=== PATIENT | male | born 1985 | race Caucasian/White ===

== ENCOUNTER 2020-08-13 20:56 | Emergency (ER) | payer SELFPAY ==
[2020-08-13 21:09] VITALS: BP 143/89; PULSE 98; RESP 18; TEMP 37.1; O2SAT 97; BMI 33.5
--- NOTE | 2020-08-13 21:30 | ED_ITS ---
HPI - Overdose General Chief Complaint: Overdose Stated Complaint: HEROIN OD,8MG NARCAN GIVEN W/GOOD RESULT Time Seen by Provider: 08/13/20 21:11 Source: patient and EMS Mode of arrival: EMS Limitations: no limitations History of Present Illness HPI Narrative: relapsed accidental heroin overdose just [employer]IST[employer] given 8mg narcan, no prior narcan in past MD complaint: accidental overdose Onset (ago): minute(s) Context: Accidental Overdose: wanted to get high Treatments Prior to Arrival: narcan (8mg) Related Data Allergies Allergy/AdvReac Type Severity Reaction Status Date / Time codeine [CODEINE] Allergy Unknown UNKNOWN Verified 08/13/20 21:12 codiene Allergy Unknown stomach Uncoded 08/13/20 21:12 pain Review of Systems Review of Systems: Constitutional : No Fever, No Chills ENT/Mouth : No sore throat, No Rhinorrhea Eyes: No Eye Pain, No Swelling, No Redness Cardiovascular : No Chest Pain, No SOB Respiratory : No Cough, No Sputum Gastrointestinal : No Nausea, No Vomiting, No Diarrhea, No abdominal Pain Genitourinary : No Dysuria, No Hematuria Musculoskeletal : No joint pain, No Myalgias, No Joint Swelling Skin : No Skin Lesions, No rash Neuro : No Weakness, No Numbness Psych : No Anxiety, No Depression, No SI/HI/AH/VH Heme/Lymph: No Bruising, No Bleeding Endocrine : No Polyuria, No Polydipsia All other systems reviewed and are negative [facility] Past Medical History Medical History No known health problems Social History Social History (Updated 08/13/20 @ 21:30 by Tati Ni DO) Smoking Status: Current every day smoker Substance Use Type: Heroin Advance Directives: No Advance Directives Information Provided: Yes Physical Exam Vital Signs: Vital Signs: Vital Signs Temp Pulse Resp BP Pulse Ox 08/13/20 21:09 98.8 F 98 18 143/89 H 97 Body Mass Index 33.5 Appearance: Alert. Oriented X3. No acute distress. Eyes: Pupils equal, round and reactive to light. ENT: Pharynx normal. Neck: Normal inspection. Neck supple. CVS: Normal heart rate and rhythm. Pulses normal. Respiratory: No respiratory distress. Breath sounds normal. Abdomen: Soft and nontender. Skin: Skin warm and dry. Normal skin color. Normal skin turgor. Extremities: No lower extremity edema. No calf ttp Neuro: Oriented X 3. No motor deficit. No sensory deficit. Course Course Course Narrative: patient awake and alert, GCS 15, steady gait, stable for DC, narcan in hand MDM - Overdose MDM Narrative Medical decision making narrative: 35 yo male relapse unintentinal heroin overdose at this time will observe off narcan to take home, he refuses SWAT/recovery coaches and suboxone clinic. Once observed stable for DC Discharge Plan Discharge Clinical Impression: Drug overdose Qualifiers: Encounter type: initial encounter Injury intent: accidental or unintentional Qualified Code(s): T50.901A - Poisoning by unspecified drugs, medicaments and biological substances, accidental (unintentional), initial encounter Patient Disposition: Home, Self-Care Instructions: Opioid Use Disorder (ED)
[2020-08-13 22:13] VITALS: BP 126/82; PULSE 80; RESP 10; O2SAT 98
== END 2020-08-13 23:18 | disposition home or self-care (01) ==
PROVIDERS: Emergency Provider Emergency Medicine
DX: T40.1X1A Poisoning by heroin, accidental (unintentional), initial encounter (principal); Y92.9 Unspecified place or not applicable; F11.10 Opioid abuse, uncomplicated; Z71.51 Drug abuse counseling and surveillance of drug abuser
CPT/HCPCS: 99283; 99285

== ENCOUNTER 2021-08-30 15:26 | Emergency (ER) | payer OTHER, SELFPAY ==
--- NOTE | ~2021-08-30 | US_ITS ---
EXAMINATION: US VENOUS ULTRASOUND WITH DOPPLER LOWER EXTREMITY, BILATERAL CLINICAL INFORMATION: Bilateral leg swelling and pain COMPARISON: None TECHNIQUE: Ultrasound of the deep veins is performed from the hip to the calf with compression sonography and color and pulse Doppler assessment. Spectral analysis with color-flow imaging is performed. FINDINGS: RIGHT: There is normal venous compression and respiratory variation and augmented flow. The visualized common femoral vein, superficial femoral vein, profunda femoral vein, popliteal vein, and the trifurcation region shows no evidence of deep venous thrombosis. There is no significant popliteal fossa cyst. LEFT: There is normal venous compression and respiratory variation and augmented flow. The visualized common femoral vein, superficial femoral vein, profunda femoral vein, popliteal vein, and the trifurcation region shows no evidence of deep venous thrombosis. There is no significant popliteal fossa cyst. If the patient's symptoms persist, followup ultrasound in 5 days 7 days might be of value to exclude proximal propagation from a non-visualized calf vein. US/US venous duplex LE BI IMPRESSION: No DVT demonstrated in either the left or right lower extremity.
[2021-08-30 16:19] VITALS: BP 124/88; PULSE 59; RESP 18; TEMP 36.7; O2SAT 98; BMI 34.8
--- NOTE | 2021-08-30 20:45 | ED.EXTPRO ---
HPI - Extremity Problem General Chief complaint: General Medical Stated complaint: bilat leg swelling Time Seen by Provider: 08/30/21 16:34 Source: patient Mode of arrival: ambulatory Limitations: no limitations History of Present Illness MD Complaint: extremity pain, extremity swelling and other (redness) Onset (ago): day(s) (5) Pain Consistency: constant Location: left, right and lower extremity Quality: aching Radiation: none Relieving factors: nothing Exacerbating factors: nothing Associated symptoms: denies other symptoms Context: other (4 bouts in past responds to abx dx with cellulitis) Related Data Previous Rx's Medication Instructions Recorded cephalexin 500 mg capsule 500 mg PO TID 7 Days #21 cap 08/30/21 doxycycline hyclate 100 mg capsule 100 mg PO BID 7 Days #14 cap 08/30/21 furosemide 20 mg tablet (Lasix) 20 mg PO DAILY 3 Days #3 tab 08/30/21 Allergies Allergy/AdvReac Type Severity Reaction Status Date / Time codeine [CODEINE] AdvReac Intermediate Stomach Verified 08/30/21 16:19 Upset codiene AdvReac Intermediate stomach Uncoded 08/30/21 16:19 pain Review of Systems Review of Systems: Constitutional : No Fever, No Chills ENT/Mouth : No sore throat, No Rhinorrhea Eyes: No Eye Pain, No Swelling, No Redness Cardiovascular : No Chest Pain, No SOB Respiratory : No Cough, No Sputum Gastrointestinal : No Nausea, No Vomiting, No Diarrhea, No abdominal Pain Genitourinary : No Dysuria, No Hematuria Musculoskeletal : No joint pain, No Myalgias, No Joint Swelling, pos LE swelling Skin : No Skin Lesions, positive skin rash Neuro : No Weakness, No Numbness, No Headache Psych : No Anxiety, No Depression Heme/Lymph: No Bruising, No Bleeding,No Lymphadenopathy Endocrine : No Polyuria, No Polydipsia All other systems reviewed and are negative [facility] Past Medical History Attestation statement: The following information was validated with the patient. Medical History Cellulitis No known health problems Social History Social History (Updated 08/30/21 @ 20:53 by Tati Ni DO) Patient Tobacco Use Status: Tobacco use Unknown Substance Use Type: Opiates Advance Directives: No Advance Directives Information Provided: Yes Physical Exam Vital Signs: Vital Signs: Last Vital Signs Temp 98.0 F 08/30/21 16:19 Pulse 59 08/30/21 16:19 Resp 18 08/30/21 16:19 BP 124/88 08/30/21 16:19 Pulse Ox 98 08/30/21 16:19 Body Mass Index 34.8 Appearance: Alert. Oriented X3. No acute distress. Eyes: Pupils equal, round and reactive to light. ENT: Pharynx normal. Neck: Normal inspection. Neck supple. CVS: Normal heart rate and rhythm. Pulses normal. Respiratory: No respiratory distress. Breath sounds normal. Abdomen: Soft and nontender. Skin: Skin warm and dry. Normal skin color. Normal skin turgor. Extremities: bilateral 2+ pitting LE edema with mild redness and warmth around bilateral shins not circumferential Neuro: Oriented X 3. No motor deficit. No sensory deficit. Course Course Course Narrative: work up negative stable for DC MDM - Extremity (Nontraumatic) MDM Narrative Medical decision making narrative: 36 yo male with hx of cellulitis resulting in LE edema at this time will need labs, DVT study no systemic symptoms has done well with oral abx in the past no other issues such as renal/liver/CHF in the past. Dispo per results and findings. Lab Data Result diagrams: 08/30/21 21:59 08/30/21 21:21 Labs: Lab Results 08/30/21 08/30/21 08/30/21 Range/Units 21:21 21:21 21:59 WBC 7.2 (4.8-10.8) X10*3/uL RBC 4.61 (4.60-5.80) X10*6/uL Hgb 13.7 L (14.0-18.0) g/dl Hct 42.0 (42.0-52.0) % MCV 91.1 (80.0-98.0) fL MCH 29.7 (27.0-33.0) pg MCHC 32.6 (31.0-36.0) g/dl RDW 12.6 (11.0-16.0) % Plt Count 315 (160-400) X10*3/uL MPV 10.0 (9.4-12.4) fL Immature Gran % (Auto) 0.1 (0.0-0.4) % Neut % (Auto) 56.2 (45-73) % Lymph % (Auto) 26.4 (20-40) % [place] % (Auto) 13.3 H (2-11) % Eos % (Auto) 3.6 (0-4) % Baso % (Auto) 0.4 (0-2) % Lymph # (Auto) 1.9 (1.2-4.9) X10*3/uL [place] # (Auto) 1.0 (0.1-1.2) X10*3/uL Eos # (Auto) 0.3 (0.0-0.4) X10*3/uL Baso # (Auto) 0.0 (0.0-0.2) X10*3/uL Abs Immat Gran (auto) 0.01 (0.00-0.03) X10*3/uL Absolute Neuts (auto) 4.1 (2.0-8.3) x10*3/uL Absolute Nucleated RBC 0.000 (0.0-0.012) X10*3/uL Nucleated RBC % (auto) 0.0 (0.0-0.2) /100WBC Sodium 142 (135-145) mmol/L Potassium 4.3 (3.3-5.1) mmol/L Chloride 106 (96-108) mmol/L Carbon Dioxide 26 (22-29) mmol/L Anion Gap 14 (12-20) BUN 9 (9-16) mg/dL Creatinine 0.93 (0.5-1.4) mg/dL Estim Creat Clear Calc 137.9 Estimated GFR > 60 Random Glucose 81 (60-115) mg/dL Calcium 9.5 (8.4-10.2) mg/dL Total Bilirubin 0.3 (0.0-1.0) mg/dL Direct Bilirubin < 0.2 (0.0-0.5) mg/dL AST 66 H (5-37) U/L ALT 50 H (0-40) U/L Alkaline Phosphatase 82 (39-117) U/L B-Natriuretic Peptide 131 H (<100) pg/mL Total Protein 6.6 (6.5-8.0) g/dL Albumin 4.2 (3.5-5.0) g/dL Discharge Plan Discharge Clinical Impression: Bilateral edema of lower extremity Cellulitis Qualifiers: Site of cellulitis: extremity Site of cellulitis of extremity: lower extremity Laterality: unspecified laterality Qualified Code(s): L03.119 - Cellulitis of unspecified part of limb Patient Disposition: Home, Self-Care Instructions: Cellulitis (ED), Leg Edema (ED) Additional Instructions: return to ED for any worsening symptoms or concerns do not take lasix after 5pm Prescriptions: New doxycycline hyclate 100 mg capsule 100 mg PO BID 7 Days Qty: 14 RF: 0 cephalexin 500 mg capsule 500 mg PO TID 7 Days Qty: 21 RF: 0 furosemide [Lasix] 20 mg tablet 20 mg PO DAILY 3 Days Qty: 3 RF: 0 Referrals: John Belle MD [Physician] - 2 weeks (call for appointment when available) Stand Alone Forms: Work/School Release
[2021-08-30] MEDS: cephALEXin 500 MG CAPSULE PO (21:15)
[2021-08-30 21:47] LABS: Alanine Aminotransferase 50 U/L (0-40); Albumin Level 4.2 g/dL (3.5-5.0); Alkaline Phosphatase 82 U/L (39-117); Anion Gap 14 (12-20); Aspartate Amino Transferase 66 U/L (5-37); Bilirubin Direct < 0.2 mg/dL (0.0-0.5); Bilirubin Total 0.3 mg/dL (0.0-1.0); Blood Urea Nitrogen 9 mg/dL (9-16); Calcium 9.5 mg/dL (8.4-10.2); Carbon Dioxide 26 mmol/L (22-29); Chloride 106 mmol/L (96-108); Creatinine Clr Calc Pharmacy 137.9; Estimated Glomerular Filt Rate > 60; Glucose Random 81 mg/dL (60-115); Potassium 4.3 mmol/L (3.3-5.1); Sodium 142 mmol/L (135-145); Total Protein 6.6 g/dL (6.5-8.0)
[2021-08-30 21:48] LABS: B Type Natriuretic Peptide 131 pg/mL (<100)
[2021-08-30 22:02] LABS: MANUAL DIFF FLAG NO
[2021-08-30 22:03] LABS: Basophils Percent Auto 0.4 % (0-2); Eosinophils Absolute Auto 0.3 X10*3/uL (0.0-0.4); Eosinophils Percent Auto 3.6 % (0-4); Hemoglobin 13.7 g/dl (14.0-18.0); Imm Gran Abs Auto 0.01 X10*3/uL (0.00-0.03); Imm Gran Pct Auto 0.1 % (0.0-0.4); Lymphocytes Absolute Auto 1.9 X10*3/uL (1.2-4.9); Lymphocytes Percent Auto 26.4 % (20-40); Mean Corpuscular HGB Conc 32.6 g/dl (31.0-36.0); Mean Corpuscular Hemoglobin 29.7 pg (27.0-33.0); Mean Corpuscular Volume 91.1 fL (80.0-98.0); Monocytes Percent Auto 13.3 % (2-11); Neutrophils Absolute Auto 4.1 x10*3/uL (2.0-8.3); Neutrophils Percent Auto 56.2 % (45-73); Platelet Count 315 X10*3/uL (160-400); Red Blood Count 4.61 X10*6/uL (4.60-5.80); Red Cell Distribution Width 12.6 % (11.0-16.0); White Blood Count 7.2 X10*3/uL (4.8-10.8)
== END 2021-08-30 22:30 | disposition home or self-care (01) ==
PROVIDERS: Emergency Provider Emergency Medicine
DX: L03.116 Cellulitis of left lower limb (principal); L03.115 Cellulitis of right lower limb; R60.0 Localized edema
CPT/HCPCS: 36415; 80048; 80076; 83880; 85025; 93970; 99283; 99284

== ENCOUNTER 2023-06-24 15:03 | Emergency (ER) | payer SELFPAY ==
[2023-06-24 16:06] VITALS: BP 114/67; PULSE 63; RESP 18; TEMP 36.5; O2SAT 98; BMI 36.3
--- NOTE | 2023-06-24 16:06 | ED.DENTAL ---
HPI - Dental/Oral General Chief complaint: Dental/Oral Stated complaint: ?Abscess in mouth History of Present Illness HPI Narrative: Patient complains of facial swelling dental pain which developed over the last 2 days with some swelling on the right side of his face, it is a right upper tooth that he knows is decayed No difficulty breathing or swallowing no swelling under the tongue Related Data Previous Rx's Medication Instructions Recorded cephalexin 500 mg capsule 500 mg PO TID 7 days #21 caps 08/30/21 doxycycline hyclate 100 mg capsule 100 mg PO BID 7 days #14 caps 08/30/21 furosemide 20 mg tablet (Lasix) 20 mg PO DAILY 3 days #3 tabs 08/30/21 amoxicillin 875 mg-potassium 1 tab PO Q12H 1 week #14 tabs 06/24/23 clavulanate 125 mg tablet Allergies Allergy/AdvReac Type Severity Reaction Status Date / Time codeine [CODEINE] AdvReac Intermediate Stomach Verified 06/24/23 16:05 Upset codiene AdvReac Intermediate stomach Uncoded 08/30/21 16:19 pain PMFSH Past Medical History Source: nursing notes reviewed Medical History Cellulitis No known health problems Social History Social History (Updated 08/30/21 @ 20:53 by Odilia Ni DO) Patient Tobacco Use Status: Tobacco use Unknown Substance Use Type: Opiates Physical Exam Vital Signs: Vital Signs: Last Vital Signs Temp 97.7 F 06/24/23 16:06 Pulse 63 06/24/23 16:06 Resp 18 06/24/23 16:06 BP 114/67 06/24/23 16:06 Pulse Ox 98 06/24/23 16:06 O2 Del Method Room Air 06/24/23 16:06 BMI result Body Mass Index 36.3 General appearance comfortable no distress The facial exam there is mild right mandibular facial swelling with no redness or warmth, pupils equal round reactive to light extraocular motions are intact there is no sinus tenderness Dental exam teeth are in poor repair there is a right upper molar that is decayed and tender with no fluctuance of the gum, no fluctuant abscess visible No swelling under the tongue no trismus no drooling Pharynx is clear no redness swelling or exudate voice is normal Neck is supple Respiratory no distress Skin no rash Extremities full range of motion x4 Course Course Course Narrative: Well-appearing patient with dental pain pop probably early dental abscess, no fluctuant abscess on the gum to drain now, no allergy to amoxicillin, no impairment of breathing and swallowing is discharged to follow with dentist Discharge Plan Discharge Clinical Impression: Dental abscess Patient Disposition: Home, Self-Care Additional Instructions: Use antibiotic as directed, Tylenol and or Motrin as needed for pain Most important follow with dentist Return any time for worse pain and swelling, swelling under the tongue, difficulty breathing or swallowing any worse condition or any concerns Prescriptions: New amoxicillin-pot clavulanate 875-125 mg tablet 1 tab PO Q12H 7 Days Qty: 14 0RF No Action doxycycline hyclate 100 mg capsule 100 mg PO BID 7 Days Qty: 14 0RF cephalexin 500 mg capsule 500 mg PO TID 7 Days Qty: 21 0RF furosemide [Lasix] 20 mg tablet 20 mg PO DAILY 3 Days Qty: 3 0RF
== END 2023-06-24 16:24 | disposition home or self-care (01) ==
PROVIDERS: Emergency Provider Emergency Medicine
DX: K04.7 Periapical abscess without sinus (principal); K08.89 Other specified disorders of teeth and supporting structures; Z79.899 Other long term (current) drug therapy
CPT/HCPCS: 99282; 99283

== ENCOUNTER 2023-07-30 12:58 | Emergency (ER) | payer SELFPAY ==
[2023-07-30 13:07] VITALS: BP 157/88; PULSE 88; RESP 18; TEMP 36.8; O2SAT 98; BMI 35.6
--- NOTE | 2023-07-30 13:10 | ED.GENADULT ---
HPI - General Adult General Chief complaint: Dental/Oral Stated complaint: tooth pain Time Seen by Provider: 07/30/23 13:11 Source: patient Mode of arrival: ambulatory Limitations: no limitations History of Present Illness HPI narrative: 38 yold male presents to the ED for right upper molar pain for the past 4 days. patient admits too poor dental hygeine. patient states no facial swelling, neck swelling, drooling, change in voice, or trouble breathing. Related Data Previous Rx's Medication Instructions Recorded cephalexin 500 mg capsule 500 mg PO TID 7 days #21 caps 08/30/21 doxycycline hyclate 100 mg capsule 100 mg PO BID 7 days #14 caps 08/30/21 furosemide 20 mg tablet (Lasix) 20 mg PO DAILY 3 days #3 tabs 08/30/21 amoxicillin 875 mg-potassium 1 tab PO Q12H 1 week #14 tabs 06/24/23 clavulanate 125 mg tablet amoxicillin 875 mg-potassium 1 tab PO Q12H 10 days #20 tabs 07/30/23 clavulanate 125 mg tablet naproxen 500 mg tablet 500 mg PO BID PRN pain 7 days #14 07/30/23 tabs Allergies Allergy/AdvReac Type Severity Reaction Status Date / Time codeine [CODEINE] AdvReac Intermediate Stomach Verified 06/24/23 16:05 Upset codiene AdvReac Intermediate stomach Uncoded 08/30/21 16:19 pain Review of Systems Review of Systems: Right upper molar dental pain Yes all other systems are reviewed and are negative PMFSH Past Medical History Medical History Cellulitis No known health problems Social History Social History (Updated 08/30/21 @ 20:53 by Odilia Ni DO) Patient Tobacco Use Status: Tobacco use Unknown Substance Use Type: Opiates Advance Directives: No Advance Directives Information Provided: No Physical Exam ED Vital Signs: Vital Signs - 24 hr 07/30/23 13:07 Temperature 98.2 F Pulse Rate 88 Respiratory Rate 18 Blood Pressure 157/88 H Pulse Oximetry 98 Oxygen Delivery Method Room Air BMI result Body Mass Index 35.6 Const General: cooperative, healthy appearing, comfortable, no acute distress, well developed, alert, awake and Physically active Orientation/consciousness: oriented to person, oriented to place, oriented to time and patient oriented x3 HENMT Other: negative for any facial swelling, neck swelling, drooling, change in voice, or trismus Head: Yes normal to inspection, Yes No palpable skull fracture present, Yes normocephalic and Yes atraumatic Teeth image: 1. tenderness on palpation with some pus collection. negative for any gum swelling, trismus, fluctulance, or drooling Throat: Yes posterior oropharynx normal, Yes tonsils normal and Yes uvula midline Eyes General: appearance normal, both eyes and all related structures Neck Neck: Yes normal visual inspection, Yes full ROM, Yes no lymphadenopathy, Yes no meningeal signs, Yes trachea midline, Yes supple, No anterior neck swelling and No tender Chest Chest palpation & inspection: normal inspection of the chest and normal palpation of entire chest wall Resp Effort & Inspection: normal respiratory effort and able to speak in complete sentences Auscultation: clear to auscultation bilaterally Cardio Jugular venous distension: no JVD Heart sounds: S1 normal heart sound present and S2 normal heart sound present GI Inspection: Yes normal to inspection Palpation (GI): Soft to palpation, not firm, nontender, no guarding and not rigid General: No CVA tenderness and Yes no CVA tenderness Back/Spine/Pelvis Back: no CVA tenderness, No CVA tenderness and No back tenderness Skin General skin exam: no rashes or lesions noted, elasticity normal and turgor normal Neuro General: oriented to person, oriented to place, oriented to time, patient oriented x3, gait normal, tone normal, moves all extremities, Normal light touch and pain sensation, no meningeal signs, no focal motor deficits, CN's II-XI intact bilaterally and normal sensation to monofilament Extrem General: Yes normal to inspection and Yes full ROM Psych Appearance: grossly normal, well kempt and not disheveled Course Course Course Narrative: RME: 38 yold male presents for right upper molar toothache. patietn states no facial swelling or drooling, neck swelling, fever, or chills. Medical Decision Making Medical Decision Making [facility] Narrative: 38 yold MALE presents to the ED for right upper molar pain. Patient denies any facial swelling, neck swelling, drooling, or change in voice. No imaging needed. ANtibiotics prescribed Differential Diagnosis Differential Diagnoses: The differential diagnosis associated with the presentation includes (dental abscess, toothahe, tooth fracture) External Record Review External record reviewed: Other (prior ED visit) Prescription Management I considered prescription management with: Pain Medication and Antibiotic Discharge Plan Discharge Clinical Impression: Toothache Patient Disposition: Home, Self-Care Instructions: Toothache (ED) Additional Instructions: Return to the ED immediately for any facial swelling, neck swelling, drooling, change in voice, worsening dental pain, chest pain, shortness of breath, fever, chills, or any other concerning symptoms. Recommend follow-up with dentist for possible extraction. Prescriptions: New amoxicillin-pot clavulanate 875-125 mg tablet 1 tab PO Q12H 10 Days Qty: 20 0RF naproxen 500 mg tablet 500 mg PO BID PRN (Reason: pain) 7 Days Qty: 14 0RF No Action doxycycline hyclate 100 mg capsule 100 mg PO BID 7 Days Qty: 14 0RF cephalexin 500 mg capsule 500 mg PO TID 7 Days Qty: 21 0RF furosemide [Lasix] 20 mg tablet 20 mg PO DAILY 3 Days Qty: 3 0RF amoxicillin-pot clavulanate 875-125 mg tablet 1 tab PO Q12H 7 Days Qty: 14 0RF Interventions: ED Discharge Assessment Last Done: 07/30/23 13:28 Discharge Date/Time: 07/30/23 13:30 Print Language: Algerian
== END 2023-07-30 13:30 | disposition home or self-care (01) ==
PROVIDERS: Emergency Provider Emergency Medicine
DX: K08.89 Other specified disorders of teeth and supporting structures (principal); Z79.899 Other long term (current) drug therapy
CPT/HCPCS: 99282; 99283